=== PATIENT | male | born 2005 | race Caucasian/White ===

== ENCOUNTER 2025-09-02 19:17 | Emergency (ER) | payer SELFPAY ==
--- NOTE | ~2025-09-02 | XR_ITS ---
XR toe 1st RT min 2V INDICATION: pain COMPARISON: None FINDINGS: Frontal, lateral and oblique views of the great toe demonstrate osseous body at the base of the distal phalanx of the great toe likely avulsion fracture. IMPRESSION: Avulsion fracture base of the distal phalanx great toe. Reviewed, dictated and finalized at location S.
[2025-09-02 19:24] VITALS: BP 140/96; PULSE 87; RESP 18; TEMP 36.8; O2SAT 98
--- NOTE | 2025-09-02 19:57 | ED_ITS ---
HPI - Extremity Injury (Lower) General Chief Complaint: Extremity Injury, Lower Stated Complaint: Right toe/foot injury Time Seen by Provider: 09/02/25 19:42 Source: patient and RN notes reviewed Mode of arrival: ambulatory Limitations: no limitations History of Present Illness HPI Narrative: 20-year-old male patient presents today with an injury to his right great toe. Approximately 3 hours prior to arrival, patient dropped a gait on his right great toe. Currently rates his pain 8/10. Denies numbness or tingling. Pain increases with weight-bearing. No OTC treatment prior to arrival. Related Data Allergies Allergy/AdvReac Type Severity Reaction Status Date / Time No Known Allergies Allergy Unknown Unverified 09/18/19 10:31 [facility] Comments At time of signature, I have reviewed and agree with nursing past medical, surgical, social and family history unless otherwise noted. Please see nursing chart for further information. There is no relevant family history pertinent to the presenting complaint Exam Narrative: GENERAL: Well-appearing, well-nourished, and in no acute distress. HEAD: Normocephalic, atraumatic. EYES: EOMI. No redness or drainage. Conjunctivae normal. ENT: Mucous membranes pink and moist. NECK: Normal AROM. CHEST: No respiratory distress. EXTREMITIES: Right great toe tenderness to the distal phalanx without edema, ecchymosis. Patient has a very small, mild subungual hematoma. Sensation intact. Capillary refill normal. Pedal pulse normal. Full range of motion of the toes and ankle. SKIN: Warm, dry, no rash. Capillary refill normal. Normal skin turgor. NEURO: No focal deficits. Alert and oriented x3. Gait steady. PSYCH: Normal affect. No signs of depression or anxiety. Course Course Level of Care: Express Care Visit Vital Signs Vital signs: Vital Signs Temperature 98.2 F 09/02/25 19:24 Pulse Rate 87 09/02/25 19:24 Respiratory Rate 18 09/02/25 19:24 Blood Pressure 140/96 H 09/02/25 19:24 Pulse Oximetry 98 09/02/25 19:24 Oxygen Delivery Room Air 09/02/25 19:24 Temperature 98.2 F 09/02/25 19:24 Pulse Rate 87 09/02/25 19:24 Respiratory Rate 18 09/02/25 19:24 Blood Pressure 140/96 H 09/02/25 19:24 Pulse Oximetry 98 09/02/25 19:24 Oxygen Delivery Room Air 09/02/25 19:24 Reviewed MDM - Extremity Injury (Lower) MDM Narrative Medical decision making narrative: 20-year-old male patient presents today with an injury to his right great toe. Approximately 3 hours prior to arrival, patient dropped a gait on his right great toe. Currently rates his pain 8/10. Denies numbness or tingling. Pain increases with weight-bearing. No OTC treatment prior to arrival. Upon exam, Right great toe tenderness to the distal phalanx without edema, ecchymosis. Patient has a very small, mild subungual hematoma. Neurovascularly intact. Patient declines felicity taping at this time. Recommend [id number] medication for discomfort, ice, rest. Patient agrees with plan. Vital signs stable. Anticipatory guidance given. Differential Diagnosis Differential diagnosis: Likely other (Toe fracture, contusion) Imaging Data Radiologist's impression: ITS Impressions Toe X-Ray 09/02/25 19:59 IMPRESSION: Avulsion fracture base of the distal phalanx great toe. Critical Care Time Critical Care Time Critical Care Time: No Discharge Plan Discharge Clinical Impression: Avulsion fracture Patient Disposition: Home Condition: Stable Instructions: Toe Fracture (ED), Avulsion Fracture (ED) Additional Instructions: Your x-ray shows a small chip off your toe. You may felicity tape to the next toe to help with stability. Take [id number] medications such as Tylenol or ibuprofen to help with discomfort. Ice the toe to help with inflammation. Follow-up with your PCP or orthopedics in 7-10 days if symptoms are not starting to improve. Patient Language: Polish Prescriptions: No Action amoxicillin 400 mg/5 mL suspension for reconstitution 800 mg PO Q12H 10 Days Qty: 200 0RF Follow-up/Referrals: PHYSICIAN,TUNNEL DRIER OPERATOR [Primary Care Provider, Internal Medicine] Tyrone Drew MD [Physician, Orthopedics] Time of Disposition: 20:14
== END 2025-09-02 20:15 | disposition home or self-care (01) ==
PROVIDERS: Emergency Provider Nurse Practitioner
DX: S92.421A Displaced fracture of distal phalanx of right great toe, initial encounter for closed fracture (principal); W20.8XXA Other cause of strike by thrown, projected or falling object, initial encounter
CPT/HCPCS: 73660; 99213; G0463